=== PATIENT | female | born 1975 | race Caucasian/White ===

== ENCOUNTER → 2018-03-13 11:52 | Outpatient (CLI) | payer BC, SELFPAY | PROVIDERS: Family Provider Family Medicine; PCP Family Medicine; Visit Provider Family Medicine | DX: R20.2 Paresthesia of skin (principal) | CPT/HCPCS: 95886; 95909 ==

== ENCOUNTER → 2018-03-21 10:46 | Outpatient (CLI) | payer BC, SELFPAY ==
--- NOTE | 2018-03-21 | DI.MG.S_ITS ---
BILATERAL DIGITAL SCREENING MAMMOGRAM 3D/2D WITH CAD: 03/21/2018 CLINICAL: Routine screening. Family history of breast cancer. Comparison is made to exams dated: 12/18/2016 mammogram, 11/11/2015 mammogram - [facility], and 11/13/2006 mammogram - [facility]. The tissue of both breasts is heterogeneously dense. This may lower the sensitivity of mammography. Current study was also evaluated with a Computer Aided Detection (CAD) system. No significant masses, calcifications, or other findings are seen in either breast. There has been no significant interval change. IMPRESSION: NEGATIVE There is no mammographic evidence of malignancy. A 1 year screening mammogram is recommended. This exam was interpreted at Station ID: [id number]. NOTE: For mammograms, a report in lay terms will be sent to the patient. Approximately 15% of breast malignancies will not be visualized mammographically. In the management of a palpable breast mass, a negative mammogram must not discourage biopsy of a clinically suspicious lesion. Electronically Signed By: Jordan saleh/andi:03/21/2018 15:05:51 letter sent: Normal Exam ACR BI-RADS Category 1: Negative [id number]
== END ==
PROVIDERS: Family Provider Family Medicine; PCP Family Medicine; Visit Provider Family Medicine
DX: Z12.31 Encounter for screening mammogram for malignant neoplasm of breast (principal); Z80.3 Family history of malignant neoplasm of breast
CPT/HCPCS: 77063; 77067

== ENCOUNTER → 2018-06-26 09:11 | Outpatient (CLI) | payer BC, SELFPAY ==
--- NOTE | 2018-06-26 | DI.MRI.S_ITS ---
PROCEDURE: MR LUMBAR SPINE WO CON INDICATIONS: LUMBAR RADICULOPATHY TECHNIQUE: Noncontrast sagittal T1 spin echo and T2 fast echo, sagittal STIR, axial T1 and T2 fast spin echo through the lumbar spine. In cases with scoliosis, additional coronal T2 fast spin echo may be performed. COMPARISON: [facility], CR, L-SPINE 2-3 VIEWS, 02/04/2012, 15:19. [facility], , L-SPINE 2-3 VIEWS, 06/29/2016, 15:19. [facility], CR, L-SPINE 2-3 VIEWS, 11/14/2017, 12:33. FINDINGS: Image quality: Excellent. Alignment and Curvature: There is grade 1 retrolisthesis of L5 on S1. Bone Marrow: Degenerative endplate signal changes in the inferior endplate of L5 and superior endplate of S1. No acute vertebral body compression fractures. Spinal Cord: Conus medullaris terminates at the L1-L2 level. Visualized cord demonstrates normal signal and size. Paraspinous Soft Tissues: No paravertebral masses. L1-L2: Normal appearance. L2-L3: Normal appearance. L3-L4: Preserved disc height. Moderate disc desiccation. There is posterior disc bulge and posterior central annular fissure. Mild bilateral facet arthropathy. The central canal is mildly narrowed. No foraminal stenosis. L4-L5: Preserved disc height. Moderate disc desiccation. There is posterior disc bulge and posterior central annular fissure. Mild bilateral facet arthropathy. The central canal is patent. No foraminal stenosis. L5-S1: Mild to moderate loss of disc height. Moderate disc desiccation. There is broad posterior disc bulge and disc protrusion. Mild bilateral facet arthropathy. The central canal is patent. Mild to moderate bilateral foraminal stenosis. IMPRESSION: 1. Multilevel degenerative disc disease and facet arthropathy as described. 2. Annular fissures posterior centrally at L3-L4 and L4-L5. 3. Mild central canal stenosis at L3-L4. 4. Itov-zh-ofzbtktr bilateral foraminal stenosis at L5-S1. Dictated by: Nikole Zeng M.D. on 06/26/2018 at 12:40 Approved by: Nikole Zeng M.D. on 06/26/2018 at 13:25
== END ==
PROVIDERS: Family Provider Family Medicine; PCP Family Medicine; Visit Provider Family Medicine
DX: M51.16 Intervertebral disc disorders with radiculopathy, lumbar region (principal); M51.17 Intervertebral disc disorders with radiculopathy, lumbosacral region; M47.26 Other spondylosis with radiculopathy, lumbar region; M47.27 Other spondylosis with radiculopathy, lumbosacral region; M48.061 Spinal stenosis, lumbar region without neurogenic claudication; M48.07 Spinal stenosis, lumbosacral region
CPT/HCPCS: 72148

== ENCOUNTER 2019-01-13 08:00 | Outpatient (CLI) | payer BC, SELFPAY ==
[2019-01-13] VITALS (8 sets, daily range): BP systolic 113–135; BP diastolic 63–79; PULSE 73–78; RESP 16–18; TEMP 36.7; O2SAT 97–100
--- NOTE | 2019-01-13 08:02 | DI.RAD.S_ITS ---
PROCEDURE: PAIN L/S FACET INJ/BLK 1ST SALUD COMPARISON: None. INDICATIONS: SPONDYLOSIS FINDINGS: Fluoroscopic spot filming was performed to verify placement of spinal needles at the L4-L5 and L5-S1 level(s), as labeled on the films. Appropriate location(s) of the needle tip(s) was confirmed by injection of iodinated contrast. Dictated by: Tyrone Maya M.D. on 01/13/2019 at 10:32 Approved by: Tyrone Maya M.D. on 01/13/2019 at 10:34
[2019-01-13] MEDS: fentaNYL 100 MCG/2 ML INJ 50 MCG IV (09:21)
[2019-01-13] MEDS: MIDAZOLAM 5 MG/5 ML VIAL IV (09:21)
[2019-01-13] MEDS: IOPAMIDOL 15 ML VIAL 3 ML INJ (09:28)
[2019-01-13] MEDS: LIDOCAINE 1% 20 ML INJ 10 ML INJ (09:28)
[2019-01-13] MEDS: BETAMETHASONE 30 MG/5 ML MDV 12 MG INJ (09:28)
--- NOTE | 2019-01-13 09:34 | PC.NURSE ---
ASSISTING PT OFF TABLE AND TRANSPORTING TO POST PROC AREA IN STABLE CONDITION
--- NOTE | 2019-01-13 09:38 | P.PCN_ITS ---
Procedures Date/Time Date of procedure: 01/13/19 Time of procedure: 09:36 General Procedure description: PREOP DIAGNOSIS 1. FACET ARTHROPATHY 2. AXIAL LBP 3. MULTILEVEL DDD POST OP DIAGNOSIS 1. FACET ARTHROPATHY 2. AXIAL LBP 3. MULTILEVEL DDD PROCEDURES 1. FLUORSCOPICALLY GUIDED CONTRAST CONTROLLED FACET JOINT INJECTIONS BILATERAL L4/5, L5/S1 PHYSICIAN: Mynor Naylor, DO INDICATIONS Yomi is referred by Dr. Hernandez for treatment of Axial LBP FINDINGS Multilevel Facet Arthropathy with Clinically significant axial LBP DESCRIPTION OF PROCEDURE Fluoroscopically guided, contrast-controlled bilateral L4/5, L5/S1 facet joint injections. Following denial of allergy and review of potential side effects and complications, including, but not necessarily limited to, infection, allergic reaction, local tissue breakdown, stroke, temporary or permanent nerve injury, paralysis, and possible , the patient indicated that the patient understood and agreed to proceed. An informed consent document was signed by the patient, witnessed by a nurse, and placed in the patient's chart. Additionally, other treatment options including medications, modalities, and physical therapy were reviewed with the patient. After review of previous anaesthesic history and IV conscious sedation the patient was deemed safe to proceed with todays procedure with IV conscious sedation as ASA class II designation. Safety time-out was performed to confirm patient ID, procedure to be performed and site of procedure. IV sedation was accomplished with a combination of 5mg of Versed and 50mcg of Fentanyl was administered by the RN after DO order, titrated to patient comfort during the course of the procedure while the patient remained responsive to all verbal commands In the prone position, following sterile prep and drape of the lumbar region, the posterior aspect of the L4/5, L5/S1 facet joints were identified fluoroscopically. The skin was anesthetized via a 25-gauge 1.5-inch needle with 1% lidocaine solution into the corresponding facet joints. At this point, a 22- gauge 3.5-inch spinal needle was atraumatically introduced and advanced under fluoroscopic guidance into the corresponding facet joints. Following negative aspiration, injections of approximately 0.2-cc of Isovue 200 confirmed interarticular placement without vascular uptake. The identical procedure was then performed at the L4/5, L5/S1 facet joints on the left. Radiological data, including multiple fluoroscopic views of the lumbosacral spine, reveal a spinal needle at the L4/5, L5/S1 facet joints bilaterally. Subsequent views show flow of contrast material both superiorly and inferiorly within the joint space without vascular or intrathecal uptake. At this point, a total of 0.5 cc including a mixture of 0.25cc Marcaine and 0.25cc betamethasone was injected without complication into each of the corresponding facet joints. The patient tolerated the procedure well without signs or symptoms of complications prior to transfer to the recovery area continued monitoring without incident. The patient was then transferred to the recovery area where they were observed for an appropriate period of time after the injection. The patient reported a VAS score of 7 prior to the procedure and a post- procedure VAS of 0. Total Fluoroscopy Time: 20.3 seconds Total Conscious Sedation Time: 24min POST OP INSTRUCTIONS The patient was provided a Pain Log to continue to record their response to the target-specific procedure prior to follow-up visit with their referring physician. Additionally, specific post-injection care instructions and a contact number to our office were provided if concerns arise regarding possible complications associated with the procedure are suspected. Mynor Naylor DO Complications: none
--- NOTE | 2019-01-13 10:30 | PC.NURSE ---
Pt arrived via wheelchair from procedure room awake and alert, able to move from w/c to chair without problems. Resumed monitoring from Kelly CALL.
== END 2019-01-13 09:58 ==
LOC: RAD 08:01
PROVIDERS: Family Provider Family Medicine; PCP Family Medicine; Visit Provider Physical Medicine & Rehabilitation
DX: M47.816 Spondylosis without myelopathy or radiculopathy, lumbar region (principal); M47.817 Spondylosis without myelopathy or radiculopathy, lumbosacral region; M54.5 Low back pain; M51.36 Other intervertebral disc degeneration, lumbar region; M51.37 Other intervertebral disc degeneration, lumbosacral region
CPT/HCPCS: 64493; 64494; 99152; J0702; J2250; J3010

== ENCOUNTER 2019-03-17 12:19 | Outpatient (CLI) | payer BC, SELFPAY ==
[2019-03-17] VITALS (9 sets, daily range): BP systolic 111–140; BP diastolic 59–77; PULSE 71–78; RESP 16–18; TEMP 36.7; O2SAT 95–100
--- NOTE | 2019-03-17 12:22 | DI.RAD.S_ITS ---
PROCEDURE: PAIN L/S TRANSFORAMINAL INJECT INDICATIONS: SPONDYLOSIS FINDINGS: Fluoroscopic spot filming was performed to verify placement of spinal needles at the L5-S1 level(s), as labeled on the films. Appropriate location(s) of the needle tip(s) was confirmed by injection of iodinated contrast. IMPRESSION: Fluoroscopy support for pain management. Dictated by: Nikole Zeng M.D. on 03/17/2019 at 14:45 Approved by: Nikole Zeng M.D. on 03/17/2019 at 14:45
[2019-03-17] MEDS: MIDAZOLAM 5 MG/5 ML VIAL IV (13:27)
[2019-03-17] MEDS: fentaNYL 100 MCG/2 ML INJ 50 MCG IV (13:27)
[2019-03-17] MEDS: BETAMETHASONE 30 MG/5 ML MDV 12 MG INJ (13:32)
[2019-03-17] MEDS: IOPAMIDOL 15 ML VIAL 3 ML INJ (13:32)
[2019-03-17] MEDS: BUPIVACAINE 0.5% (PF) VIAL 2 ML INJ (13:32)
[2019-03-17] MEDS: DEXAMETHASONE 10 MG/ML VIAL 20 MG INJ (13:32)
--- NOTE | 2019-03-17 13:40 | PC.NURSE ---
ASSISTING PT OFF TABLE AND TRANSPORTING TO POST PROC AREA IN STABLE CONDITION.
--- NOTE | 2019-03-17 13:43 | PM.PROC.1 ---
Procedures Date/Time Date of procedure: 03/17/19 Time of procedure: 13:44 General Procedure description: PREOP DIAGNOSIS 1. FORMAINAL STENOSIS WITH LE SYMPTOMS, POST OP DIAGNOSIS 1. FORMAINAL STENOSIS WITH LE SYMPTOMS, PROCEDURES 1.FLUOROSCOPICALLY GUIDED CONTRAST CONTROLLED TRANSFORAMINAL EPIDURAL STEROID INJECTION - RIGHT L5/S1 TFESI PHYSICIAN: Mynor Naylor DO INDICATIONS: Yomi is referred by Dr. Bennett for treatment of Foraminal Stenosis with right LE Symptoms FINDINGS Foraminal Nerve Root Compression secondary to disc disease and facet hypertrophy DESCRIPTION OF PROCEDURE Following review of allergy and review of potential side effects and complications, including, but not necessarily limited to, infection, allergic reaction, local tissue breakdown, stroke, temporary or permanent nerve injury, paralysis, and possible , the patient indicated that the patient understood and agreed to proceed. An informed consent document was signed by the patient, witnessed by a nurse, and placed in the patient's chart. Additionally, other treatment options including medications, modalities, and physical therapy were reviewed with the patient. After review of previous anaesthesic history and IV conscious sedation the patient was deemed safe to proceed with todays procedure with IV conscious sedation as ASA class II designation. Safety time-out was performed to confirm patient ID, procedure to be performed and site of procedure. IV sedation was accomplished with a combination of 3mg of Versed and 50mcg of Fentanyl was administered by the RN after DO order, titrated to patient comfort during the course of the procedure while the patient remained responsive to all verbal commands In the prone position following sterile prep and drape of the lumbar region, the right L5/S1 posterior neuroforamen was identified fluoroscopically. The skin was anesthetized via a 25-gauge 1.5-inch needle with 1% lidocaine solution. At this point, a 25-gauge 3.5-inch spinal needle was atraumatically introduced and advanced under fluoroscopic guidance through the posterior right L5/S1 neuroforamen to approximately the anterior aspect of the canal. Depth was confirmed on lateral view. Following negative aspiration, injection of approximately 1.5 cc of Isovue 200 under live fluoroscopy in the AP view confirmed excellent flow along the nerve root, into the epidural space without vascular or intrathecal uptake observed Radiological data, including multiple fluoroscopic views of the lumbosacral spine, reveal a spinal needle at the right L5/S1 posterior neuroforamen. Subsequent views show flow of contrast material flowing superiorly and inferiorly along the nerve root confirming epidural flow. Subsequently, a test dose of 1.5 cc of 1% lidocaine solution was administered and patient was observed for two minutes for signs or symptoms of complications, including abdominal pain, shortness of breath, bilateral upper or lower extremity weakness, nausea and vomiting, prior to steroid injection. At this point, a total of 3cc or 20mg of dexamethasone and 6mg of betamethasone was injected without incident. The procedure tolerated the procedure well without signs or symptoms of complications prior to transfer to the recovery area continued monitoring without incident. The patient was then transferred to the recovery area where they were observed for an appropriate time after the injection. The patient reported a VAS score of 7 prior to the procedure and a post-procedure VAS of 0. Total Fluoroscopy Time: 20.9 seconds Total Conscious Sedation Time: 24min POST OP INSTRUCTIONS The patient was provided a Pain Log to continue to record their response to the target-specific procedure prior to follow-up visit with their referring physician. Additionally, specific post-injection care instructions and a contact number to our office were provided if concerns arise regarding possible complications associated with the procedure are suspected. Mynor Naylor, Complications: none
--- NOTE | 2019-03-17 13:45 | PC.NURSE ---
Pt returned from procedure via wheelchair, awake and alert, able to move from w/c to chair with standby assist. Resumed monitoring from Kelly CALL.
== END 2019-03-17 14:11 ==
LOC: RAD 12:21
PROVIDERS: Family Provider Family Medicine; PCP Family Medicine; Visit Provider Physical Medicine & Rehabilitation
DX: M47.817 Spondylosis without myelopathy or radiculopathy, lumbosacral region (principal); M51.26 Other intervertebral disc displacement, lumbar region
CPT/HCPCS: 64483; 99152; J0702; J1100; J2250; J3010

== ENCOUNTER → 2019-03-31 14:45 | Outpatient (CLI) | payer BC, SELFPAY ==
--- NOTE | 2019-03-31 | DI.MG.S_ITS ---
BILATERAL DIGITAL SCREENING MAMMOGRAM 3D/2D WITH CAD: 03/31/2019 CLINICAL: Routine screening. Family history of breast cancer. Comparison is made to exams dated: 03/21/2018 mammogram, 12/18/2016 mammogram, and 11/11/2015 mammogram - [facility]. The tissue of both breasts is heterogeneously dense. This may lower the sensitivity of mammography. Current study was also evaluated with a Computer Aided Detection (CAD) system. No significant masses, calcifications, or other findings are seen in either breast. There has been no significant interval change. IMPRESSION: NEGATIVE There is no mammographic evidence of malignancy. A 1 year screening mammogram is recommended. This exam was interpreted at Station ID: [id number]. NOTE: For mammograms, a report in lay terms will be sent to the patient. Approximately 15% of breast malignancies will not be visualized mammographically. In the management of a palpable breast mass, a negative mammogram must not discourage biopsy of a clinically suspicious lesion. Electronically Signed By: Truong herzog/andi:04/02/2019 09:20:51 letter sent: Normal Exam ACR BI-RADS Category 1: Negative 3341F
== END ==
PROVIDERS: Family Provider Family Medicine; PCP Family Medicine; Visit Provider Family Medicine
DX: Z12.31 Encounter for screening mammogram for malignant neoplasm of breast (principal); Z80.3 Family history of malignant neoplasm of breast
CPT/HCPCS: 77063; 77067

== ENCOUNTER 2019-06-23 09:32 | Outpatient (CLI) | payer BC, SELFPAY ==
[2019-06-23] VITALS (11 sets, daily range): BP systolic 111–146; BP diastolic 69–82; PULSE 67–79; RESP 16–18; TEMP 36.7; O2SAT 18–100
--- NOTE | 2019-06-23 09:33 | DI.RAD.S_ITS ---
PROCEDURE: PAIN L/S FACET INJ/BLK 1ST SALUD COMPARISON: None. INDICATIONS: SPONDYLOSIS FINDINGS: 6 intraoperative fluoroscopy images demonstrate needle placement at L4, L5 and S1. IMPRESSION: Fluoroscopy for pain management. Dictated by: Nikole Zeng M.D. on 06/23/2019 at 11:31 Approved by: Nikole Zeng M.D. on 06/23/2019 at 11:32
[2019-06-23] MEDS: fentaNYL 100 MCG/2 ML INJ 50 MCG IV (10:39)
[2019-06-23] MEDS: BUPIVACAINE 0.5% (PF) VIAL 2 ML INJ (10:48)
[2019-06-23] MEDS: IOPAMIDOL 15 ML VIAL 3 ML INJ (10:49)
[2019-06-23] MEDS: MIDAZOLAM 5 MG/5 ML VIAL IV (10:51)
[2019-06-23] MEDS: LIDOCAINE 1% 20 ML 10 ML INJ (10:51)
[2019-06-23] MEDS: BETAMETHASONE 30 MG/5 ML MDV 12 MG INJ (10:51)
--- NOTE | 2019-06-23 10:59 | PC.NURSE ---
ASSISTING PT OFF TABLE AND TRANSPORTING TO POST PROC AREA IN STABLE CONDITION. PASSING RN CARE OF PT TO ANDREA Khoury RN.
--- NOTE | 2019-06-23 11:05 | P.PCN_ITS ---
Procedures Date/Time Date of procedure: 06/23/19 Time of procedure: 11:06 General Procedure description: Procedure description: 1. FACET ARTHROPATHY PROCEDURES: 1. BILATERAL- L4, L5 and S1 MB BLOCKS PHYSICIAN: DO LIZ Mix Yomi is referred by for treatment of Bilateral Axial LBP. DESCRIPTION OF PROCEDURE Fluoroscopically guided, contrast-controlled bilateral L4, L5 and S1 medial branch blocks with 0.5cc of 0.5% Marcaine. Following review of allergy and review of potential side effects and complications, including, but not necessarily limited to, infection, allergic reaction, local tissue breakdown, nerve injury, paralysis, stroke and possible , the patient indicated that the patient understood and agreed to proceed. An informed consent document was signed by the patient, witnessed by a nurse, and placed in the patient's chart. After review of previous anaesthesic history and IV conscious sedation the patient was deemed safe to proceed with todays procedure with IV conscious se dation as ASA class II designation. Safety time-out was performed to confirm patient ID, procedure to be performed and site of procedure. IV sedation was accomplished with a combination of 3mg of Versed and 50mcg of Fentanyl was administered by the RN after DO order, titrated to patient comfort during the course of the procedure while the patient remained responsive to all verbal commands In the prone position, following sterile prep and drape of the lumbar region, the right L4, L5 and S1 anatomical location of the medial branch of the dorsal ramus was identified fluoroscopically. Subsequently an anesthetic skin wheal using 1% lidocaine solution was initiated at each of the anatomical spots. Subsequently then a 22-gauge 3.5-inch spinal needle was atraumatically introduced and advanced under fluoroscopic guidance at each of the corresponding sites at the right L4, L5 and S1 MB. After negative aspiration, 0.2cc of Isovue 200 was injected, confirming placement without vascular or intrathecal uptake. Subsequently then 0.5cc of 0.5% Marcaine solution was injected at each of the corresponding sites at the right L4, L5 and S1 medial branch locations. The identical procedure was replicated on the left. The patient tolerated the procedure well without signs or symptoms of complications prior to transfer to the recovery area continued monitoring without incident. Post-procedure, the patient was monitored initiating provocative activities to measure the amount of relief from block of the facetogenic pain. The patient reported a VAS of 7 prior to the procedure and a post-procedure VAS of 1. It has been a pleasure to assist in the diagnostic and therapeutic care of your patient. Total Fluoroscopy Time: 24.8 seconds Total Conscious Sedation Time: 24min POST OP INSTRUCTIONS The patient was provided with a Pain Log to complete over the next several hours and subsequent days prior to the patient's follow up with the ordering physician. If the patient has laborer wrecking and salvaging relief to the solution applied, then they may be a candidate for medial branch rhizotomy. The patient is aware, was provided, once again, with a Pain Log and will follow up with the referring physician for review and clinical correlation Mynor Naylor DO
--- NOTE | 2019-06-23 11:49 | PC.NURSE ---
Discharge note: VSS, O2 sat WNL, Awake and slightly drowsy from sedation. Tolerating po without nausea. Pain level 0/10. Denies any unusual numbness or tingling. Discharge instructions reviewed with patient and spouse with good understanding. Stable for discharge to home. W/c to car at 1130.
== END 2019-06-23 11:30 ==
LOC: RAD 09:33
PROVIDERS: PCP Family Medicine; Visit Provider Physical Medicine & Rehabilitation
DX: M47.817 Spondylosis without myelopathy or radiculopathy, lumbosacral region (principal); M47.816 Spondylosis without myelopathy or radiculopathy, lumbar region; M54.5 Low back pain
CPT/HCPCS: 64493; 64494; 99152; J0702; J2250; J3010

== ENCOUNTER 2019-09-01 11:08 | Outpatient (CLI) | payer BC, SELFPAY ==
[2019-09-01] VITALS (13 sets, daily range): BP systolic 117–143; BP diastolic 56–90; PULSE 79–95; RESP 16–20; TEMP 36.1; O2SAT 94–99
--- NOTE | 2019-09-01 11:09 | DI.RAD.S_ITS ---
PROCEDURE: PAIN L/S MED/LAT N RFA BILAT INDICATIONS: INTERVERTEBRAL DISC DISPLACEMENT FINDINGS: Fluoroscopic spot filming was performed to verify placement of spinal needles at the L4, L5 and S1 level(s), as labeled on the films. Appropriate location(s) of the needle tip(s) was confirmed by injection of iodinated contrast. IMPRESSION: Fluoroscopy for pain management Dictated by: Nikole Zeng M.D. on 09/01/2019 at 12:49 Approved by: Nikole Zeng M.D. on 09/01/2019 at 12:52
[2019-09-01] MEDS: fentaNYL 100 MCG/2 ML INJ 50 MCG IV (11:54)
[2019-09-01] MEDS: MIDAZOLAM 5 MG/5 ML VIAL IV (12:07)
[2019-09-01] MEDS: LIDOCAINE 1% 20 ML 10 ML INJ (12:13)
[2019-09-01] MEDS: BUPIVACAINE 0.5% (PF) VIAL 5 ML INJ (12:13)
--- NOTE | 2019-09-01 12:32 | PC.NURSE ---
ASSISTING PT OFF TABLE AND TRANSPORTING TO POST PROC AREA IN STABLE CONDITION. PASSING RN CARE OF PT TO BRENT Rabago RN.
--- NOTE | 2019-09-01 12:39 | P.PCN_ITS ---
Procedures Date/Time Date of procedure: 09/01/19 Time of procedure: 12:39 General Procedure description: PREOP DIAGNOSIS 1. RECALCITRANT FACET ARTHROPATHY, POST OP DIAGNOSIS 1. RECALCITRANT FACET ARTHROPATHY PROCEDURES 1. BILATERAL L4 AND L5 MEDIAL BRANCH RADIOFREQUENCY NEUROTOMY AND S1 DORSAL RAMUS BRANCH RADIOFREQUENCY NEUROTOMY PHYSICIAN: Mynor Naylor DO INDICATIONS: Yomi is referred by Dr. Hernandez for treatment of facet arthropathy. DESCRIPTION OF PROCEDURE Bilateral L4 and L5 medial branch radiofrequency neurotomy and right S1 dorsal ramus radiofrequency neurotomy under fluoroscopy with conscious sedation. The patient is well known to this clinic having undergone previous facet injections with good but temporary relief. The patient has experienced appropriate, concordant relief with previous facet and median branch blocks but the patient's pain has been recalcitrant to further conservative measures. Therefore, based upon the patient's relief and persistent symptoms, the patient is considered an appropriate candidate for facet rhizotomy. All of the patient's questions regarding the risks versus benefits of the procedure, including, but not limited to, bleeding, infection, temporary as well as lasting nerve injury, paralysis, stroke, and , as well treatment alternatives were answered to satisfaction. After obtaining informed consent, denial of pertinent drug allergies, as well as being made aware of the potential risks of bleeding, infection, spinal cord trauma, paralysis, temporary and permanent nerve damage, seizure, stroke, and possible , the patient was brought to the fluoroscopy suite and positioned prone on the fluoroscopy table. The lumbar region was prepped with Betadine and covered with a fenestrated drape in the usual sterile fashion. Appropriate monitors applied including pulse oximeter, pulse, and blood pressure for regular monitoring throughout the procedure. After review of previous anaesthesic history and IV conscious sedation the patient was deemed safe to proceed with todays procedure with IV conscious sedation as ASA class II designation. Safety time-out was performed to confirm patient ID, procedure to be performed and site of procedure. IV sedation was accomplished with a combination of 5mg of Versed and 50mcg of Fentanyl administered by the RN after DO order, titrated to patient comfort during the course of the procedure while the patient remained responsive to all verbal commands. After local infiltration using 1% lidocaine, under fluoroscopic guidance, a 15- cm RF insulated needle with a 10-mm active tip was positioned parallel to the junction of the right sacral ala and the superior articulating process where the S1 dorsal ramus resides. Needle placement was confirmed with motor stimulation of .5v on the right which produced local stimulation without radicular component. The stimulation was then increased to 1.5v with, once again, only local multifidus stimulation without radicular component. The needle was then removed and the identical procedure was performed along the length of the right L5 medial branch with motor stimulation at .7v on the right. The identical procedure was once again performed along the length of the right L4 medial branch with motor stimulation of .5v on the right. The medial branches were then anesthetised with 0.5% Marcaine. This was then followed by two discreet lesions performed at 80 degrees Celsius for 90 seconds each. The identical procedure was repeated on the left. The patient tolerated the procedure well without signs or symptoms of complications prior to transfer to the recovery area continued monitoring without incident. The patient was then transferred to the recovery area where they were observed for an appropriate period of time after the injection. The patient reported a VAS score of 9 prior to the procedure and a post-procedure VAS of 0. Total Fluoroscopy Time: 22.7 seconds Total Conscious Sedation Time: 34min POST OP INSTRUCTIONS The patient was provided a Pain Log to continue to record the patient's response to the target-specific procedure prior to the patient's follow-up visit with the referring physician. Additionally, specific post-injection care instructions and a contact number to our office were provided if concerns arise regarding possible complications associated with the procedure are suspected. Mynor Naylor DO Complications: none
== END 2019-09-01 13:11 | disposition home or self-care (01) ==
PROVIDERS: Family Provider Family Medicine; PCP Family Medicine; Visit Provider Physical Medicine & Rehabilitation
DX: M47.816 Spondylosis without myelopathy or radiculopathy, lumbar region (principal); M47.817 Spondylosis without myelopathy or radiculopathy, lumbosacral region
CPT/HCPCS: 64635; 64636; 99152; 99153; J2250; J3010

== ENCOUNTER 2019-11-01 12:30 | Emergency (ER) | payer BC, SELFPAY ==
[2019-11-01 12:46] VITALS: BP 173/91; PULSE 79; RESP 18; TEMP 36.9; O2SAT 98
--- NOTE | 2019-11-01 12:57 | DI.RAD.S_ITS ---
PROCEDURE: XR SOFT TISSUE NECK INDICATIONS: pain, dysphagia TECHNIQUE: 2 views of the neck were acquired. COMPARISON: None. FINDINGS: Airway: The airway appears patent. Soft tissues: Prevertebral soft tissues are normal in thickness. The epiglottis and aryepiglottic folds appear normal. No soft tissue gas. Multilevel endplate osteophytes within the cervical spine. Bones: No suspicious bony lesions. Visualized cervical spine is normally aligned. IMPRESSION: No acute process. Dictated by: Brendan Cheema M.D. on 11/01/2019 at 13:29 Approved by: Brendan Cheema M.D. on 11/01/2019 at 13:29
--- NOTE | 2019-11-01 12:57 | DI.RAD.S_ITS ---
PROCEDURE: XR CHEST 2V INDICATIONS: cough, shortness of breath TECHNIQUE: 2 views of the chest were acquired. COMPARISON: [facility], , CHEST 2 VIEW, 09/25/2017, 10:06. FINDINGS: Surgical changes and devices: Median sternotomy. Lungs and pleura: Lung volumes are low. There is bilateral mid and lower lung reticulonodular density. No pleural effusions or pneumothorax. Mediastinum: Mediastinal contours are normal. Heart size is normal. Bones and chest wall: No suspicious bony abnormalities. Soft tissues appear unremarkable. IMPRESSION: Mild atypical pneumonia. Dictated by: Brendan Cheema M.D. on 11/01/2019 at 13:29 Approved by: Brendan Cheema M.D. on 11/01/2019 at 13:30
--- NOTE | 2019-11-01 13:15 | PC.NURSE ---
Patient felt normal this morning, sudden onset of throat pain, pain with deep breath I can't breath voice presents raspy and abnormal per family. Patient has a persistent dry cough, continues to try and clear her throat. Throat slightly red, no swelling appreciated.
--- NOTE | 2019-11-01 13:16 | ED.SOB ---
HPI - SOB/Dyspnea <Farzaneh Herron, SU[employer]AR MIXER-BC - Last Filed: 11/01/19 17:15> General Chief Complaint: Shortness of Breath/Dyspnea Stated Complaint: SOB, Difficulty Breathing Time Seen by Provider: 11/01/19 12:48 Source: patient Mode of arrival: Ambulatory Limitations: no limitations History of Present Illness HPI Narrative: The patient is a 44-year-old female former smoker with history of tetralogy of Fallot who presents with a chief complaint of sudden onset of throat pain. She was at [employer] with her family, left urge to go get a snack and returns stating that her throat hurt really bad and she could not breathe. She states that she went to eat Cheerios, which she has had before with no incidence. She denies any fevers nausea vomiting or diarrhea. She states she feels as though she has to keep clearing her throat. She has not tried to eat or drink anything since. She denies any fevers nausea vomiting or diarrhea. She states that she does not know why her throat started hurting all of a sudden. She denies any specific exposures to strep etcetera. Related Data Home Medications Medication Instructions Recorded Confirmed Vitamin K PO 12/19/18 10/01/19 aspirin 81 mg chewable tablet 81 mg PO DAILY 12/19/18 10/01/19 cholecalciferol (vitamin D3) 125 5,000 unit PO DAILY 12/19/18 10/01/19 mcg (5,000 unit) capsule lamotrigine 150 mg tablet 150 mg PO DAILY 12/19/18 10/01/19 pseudoephedrine HCl 30 mg tablet PO PRN #0 12/19/18 10/01/19 venlafaxine PO .qday 12/19/18 10/01/19 warfarin 3 mg tablet 3 mg PO DAILY 12/19/18 10/01/19 Previous Rx's Medication Instructions Recorded cyclobenzaprine 10 mg tablet 10 mg PO TID PRN #60 tab 04/06/19 diclofenac sodium 1 % topical gel 2 gram TOP QID #100 gram 04/30/19 lidocaine 5 % topical patch 1 patch TOP DAILY #30 each MDD 12 04/30/19 hours in a 24 hour period lidocaine 5 % topical ointment 1 applic TOP BID-TID PRN #35.44 07/07/19 gram MDD three applications tramadol 50 mg PO Q8H PRN #40 tab 09/01/19 tramadol 50 mg PO Q8H PRN #40 tab 09/01/19 doxycycline hyclate 100 mg PO BID #20 cap 11/01/19 Allergies Allergy/AdvReac Type Severity Reaction Status Date / Time prednisone AdvReac Mild INCREASED Verified 10/01/19 11:35 HEART RATE Review of Systems <DONOVAN Flores - Last Filed: 11/01/19 17:15> Review of Systems Narrative: GENERAL: Denies chills, fatigue, malaise, fever, sweats. HEENT: See HPI RESPIRATORY: See HPI CARDIOVASCULAR: Denies chest pain, palpitations, orthopnea, edema, GASTROINTESTINAL: Denies nausea, vomiting, abdominal pain, diarrhea, constipation, melena. : Denies dysuria, frequency, incontinence, hematuria, urinary retention. MUSCULOSKELETAL: denies weakness, joint pain, or bony pain SKIN: Denies rash, skin lesions, or other NEUROLOGIC: Denies weakness, headache, numbness, change in speech, confusion, seizures, incoordination. PSYCHIATRIC: No concerning psychosocial issues. 12 point review of systems is negative except for those stated above Patient History <DONOVAN Flores - Last Filed: 11/01/19 17:15> Surgical History History of heart surgery (Acute) History of medial meniscus repair of right knee (Acute) History of sinus surgery (Acute) Family History Father Heart attack Mother Diabetes mellitus Social History Smoking Status: Former smoker Smoking Status: Former smoker Substance Use Type: does not use Exam <DONOVAN Flores - Last Filed: 11/01/19 17:15> Narrative Exam Narrative: GENERAL: This is a well-nourished, well-developed patient, coughing HEAD: Atraumatic. Normocephalic. No temporal or scalp tenderness. EYES: Pupils equal round and reactive. Extraocular motions intact. No scleral icterus. No injection or drainage. ENT: Nose without bleeding, purulent drainage or septal hematoma. Throat without erythema, tonsillar hypertrophy or exudate. Uvula midline. Airway patent. No oropharyngeal swelling. NECK: Trachea midline. No JVD or lymphadenopathy. Supple, nontender, no meningeal signs. CARDIOVASCULAR: Regular rate and rhythm RESPIRATORY: Clear to auscultation. Breath sounds equal bilaterally. No wheezes, rales, or rhonchi. Dry spastic sounding cough. No increased respiratory effort. No accessory muscle use. No stridor. No retractions. GASTROINTESTINAL: Abdomen soft, non-tender, nondistended. No hepato-splenomegaly, or palpable masses. No guarding. EXTREMITIES: No clubbing, cyanosis, or edema. No joint tenderness, effusion, or edema noted. BACK: Nontender without deformity or crepitance. No flank tenderness. NEURO: AOx3. SKIN: No rash or erythema on visible skin. Midline chest incision noted. Initial Vital Signs Initial Vital Signs: Vital Signs Temperature 98.4 F 11/01/19 12:46 Pulse Rate 79 11/01/19 12:46 Respiratory Rate 18 11/01/19 12:46 Blood Pressure 173/91 H 11/01/19 12:46 Pulse Oximetry 98 11/01/19 12:46 <Lillie Reilly MD - Last Filed: 11/02/19 07:14> Initial Vital Signs Initial Vital Signs: Vital Signs Temperature 98.4 F 11/01/19 12:46 Pulse Rate 79 11/01/19 12:46 Respiratory Rate 18 11/01/19 12:46 Blood Pressure 173/91 H 11/01/19 12:46 Pulse Oximetry 98 11/01/19 12:46 Scores <RUSSEL Flores-BC - Last Filed: 11/01/19 17:15> CURB-65 Confusion: No BUN >19mg/dL (>7mmol/L): No Respiratory rate greater or equal to 30: No SBP <90mmHg or DBP less or equal to 60mmHg: No Age 65 or Older: No CURB-65 Total: 0 Score 0-1 Outpatient care, Score 2 Inpt vs. Obs, Score 3 or over Inpt admit with ICU for score of 4-5 GCS Donal coma scale eye opening: Spontaneous Donal coma scale verbal response: Orientated Donal coma scale motor response: Obey commands Donal coma scale total score: 15 Course <RUSSEL Flores-BC - Last Filed: 11/01/19 17:15> Orders Ordered: Discontinued Medications Diphenhydramine HCl (Benadryl) 50 mg PO NOW ONE Stop: 11/01/19 12:58 Last Admin: 11/01/19 13:25 Dose: 50 mg Documented by: RENITA Vital Signs Vital signs: Vital Signs - 8 hr 11/01/19 12:46 11/01/19 16:11 Temperature 98.4 F 98.8 F Pulse Rate 79 80 Respiratory Rate 18 12 Blood Pressure 173/91 H Blood Pressure [left arm] 140/78 Pulse Oximetry 98 99 <Lillie Reilly MD - Last Filed: 11/02/19 07:14> Orders Ordered: Discontinued Medications Diphenhydramine HCl (Benadryl) 50 mg PO NOW ONE Stop: 11/01/19 12:58 Last Admin: 11/01/19 13:25 Dose: 50 mg Documented by: RENITA Vital Signs Vital signs: Vital Signs - 8 hr 11/01/19 12:46 11/01/19 16:11 Temperature 98.4 F 98.8 F Pulse Rate 79 80 Respiratory Rate 18 12 Blood Pressure 173/91 H Blood Pressure [left arm] 140/78 Pulse Oximetry 98 99 MDM - SOB/Dyspnea <DONOVAN Flores - Last Filed: 11/01/19 17:15> Lab Data Attestation: I reviewed the patient's lab results. Result diagrams: 11/01/19 14:47 11/01/19 14:47 Labs: Lab Results 11/01/19 11/01/19 11/01/19 Range/Units 13:36 13:36 14:47 WBC 7.2 (4.5-11.0) X10^3/uL RBC 3.84 L (4.0-5.2) X10^6/uL Hgb 11.6 L (12.0-16.0) g/dL Hct 34.2 L (36-46) % MCV 89.1 (80-100) fL MCH 30.3 (26-34) PG MCHC 34.1 (30-36) % RDW 13.7 (11.6-14.8) % Plt Count 316 (150-400) X10^3/uL Neut % (Auto) 51.3 (50-75) % Lymph % (Auto) 37.3 (25-40) % [place] % (Auto) 6.7 (3-14) % Eos % (Auto) 3.7 (2-4) % Baso % (Auto) 1.0 (0-2) % Neut # (Auto) 3700 (4610-8038) /uL Lymph # (Auto) 2700 (1952-5063) /uL [place] # (Auto) 500 (0-900) /uL Eos # (Auto) 300 (0-450) /uL Baso # (Auto) 100 (0-100) /uL Sodium (137-145) mmol/L Potassium (3.4-5.1) mmol/L Chloride (98-107) mmol/L Carbon Dioxide (22-32) mmol/L BUN (7-17) mg/dL Creatinine (0.52-1.04) mg/dL Estimated GFR (>60) mL/min BUN/Creatinine Ratio (6-22) Glucose (70-100) mg/dL Calcium (8.4-10.2) mg/dL Total Bilirubin (0.2-1.3) mg/dL AST (14-36) IU/L ALT (<35) IU/L Alkaline Phosphatase (38-126) U/L Total Protein (6.3-8.2) g/dL Albumin (3.5-5.0) g/dL Globulin (1.7-4.1) g/dL Albumin/Globulin Ratio (1.0-2.8) Procalcitonin (<0.5) ng/mL Urine RBC 0-1/hpf (0-5/HPF) Urine WBC 1-5/hpf (0-5/HPF) Ur Squamous Epith Cells 1-5 /hpf (0-5/HPF) Urine Bacteria Moderate (10-30) H (None) Ur Culture Indicated? Culture not indicate U Opiates 300ng/mL cut Negative (Negative) Ur Oxycodone Screen Negative (Negative) Urine Methadone Screen Negative (Negative) Ur Barbiturates Screen Negative (Negative) U Tricyclic Antidepress Negative (Negative) Ur Phencyclidine Scrn Negative (Negative) Ur Amphetamines Screen Negative (Negative) U Methamphetamines Scrn Negative (Negative) Ur MDMA Scrn (Ecstasy) Negative (Negative) U Benzodiazepines Scrn Negative (Negative) Urine Cocaine Screen Negative (Negative) U Marijuana (THC) Screen Negative (Negative) 11/01/19 11/01/19 Range/Units 14:47 14:47 WBC (4.5-11.0) X10^3/uL RBC (4.0-5.2) X10^6/uL Hgb (12.0-16.0) g/dL Hct (36-46) % MCV (80-100) fL MCH (26-34) PG MCHC (30-36) % RDW (11.6-14.8) % Plt Count (150-400) X10^3/uL Neut % (Auto) (50-75) % Lymph % (Auto) (25-40) % [place] % (Auto) (3-14) % Eos % (Auto) (2-4) % Baso % (Auto) (0-2) % Neut # (Auto) (3796-6155) /uL Lymph # (Auto) (0096-1675) /uL [place] # (Auto) (0-900) /uL Eos # (Auto) (0-450) /uL Baso # (Auto) (0-100) /uL Sodium 138 (137-145) mmol/L Potassium 4.1 (3.4-5.1) mmol/L Chloride 102 (98-107) mmol/L Carbon Dioxide 29 (22-32) mmol/L BUN 10 (7-17) mg/dL Creatinine 0.50 L (0.52-1.04) mg/dL Estimated GFR > 60.0 (>60) mL/min BUN/Creatinine Ratio 20.0 (6-22) Glucose 108 H (70-100) mg/dL Calcium 9.9 (8.4-10.2) mg/dL Total Bilirubin 0.3 (0.2-1.3) mg/dL AST 29 (14-36) IU/L ALT 17 (<35) IU/L Alkaline Phosphatase 109 (38-126) U/L Total Protein 8.2 (6.3-8.2) g/dL Albumin 4.4 (3.5-5.0) g/dL Globulin 3.8 (1.7-4.1) g/dL Albumin/Globulin Ratio 1.2 (1.0-2.8) Procalcitonin < 0.05 (<0.5) ng/mL Urine RBC (0-5/HPF) Urine WBC (0-5/HPF) Ur Squamous Epith Cells (0-5/HPF) Urine Bacteria (None) Ur Culture Indicated? U Opiates 300ng/mL cut (Negative) Ur Oxycodone Screen (Negative) Urine Methadone Screen (Negative) Ur Barbiturates Screen (Negative) U Tricyclic Antidepress (Negative) Ur Phencyclidine Scrn (Negative) Ur Amphetamines Screen (Negative) U Methamphetamines Scrn (Negative) Ur MDMA Scrn (Ecstasy) (Negative) U Benzodiazepines Scrn (Negative) Urine Cocaine Screen (Negative) U Marijuana (THC) Screen (Negative) Point of Care Testing Test Results Negative Rapid Strep A Negative Urine Dip Bedside Urine Glucose Negative Bedside Urine Bilirubin - Negative Bedside Urine Ketone - Negative Urine Specific Anderson 1.010 Bedside Urine Occult Blood - Negative Bedside Urine pH 6.0 Bedside Urine Protein - Negative Bedside Urine Urobilinogen - Negative Bedside Urine Nitrite - Negative Bedside Urine Leukocytes + 70 Esterase Imaging Data Soft tissue x-ray: Radiologist's Impression: [address] [place] [id number] XRay Report Signed Patient: Yomi Castro R#: [id number] : 1975Acct:[id number] Age/Sex: 44 / FDate of Service: 11/01/19 Loc: ED Accession Number: [id number] Procedure: XR soft tissue neck Ordering Provider: Farzaneh Herron [facility]- PROCEDURE: XR SOFT TISSUE NECK INDICATIONS: pain, dysphagia TECHNIQUE: 2 views of the neck were acquired. COMPARISON: None. FINDINGS: Airway: The airway appears patent. Soft tissues: Prevertebral soft tissues are normal in thickness. The epiglottis and aryepiglottic folds appear normal. No soft tissue gas. Multilevel endplate osteophytes within the cervical spine. Bones: No suspicious bony lesions. Visualized cervical spine is normally aligned. IMPRESSION: No acute process. Dictated by: Brendan Cheema M.D. on 11/01/2019 at 13:29 Approved by: Brendan Cheema M.D. on 11/01/2019 at 13:29 Chest x-ray: Radiologist's Impression: [address] [place] [id number] XRay Report Signed Patient: Yomi Castro JMR#: [id number] : 1975Acct:[id number] Age/Sex: 44 / FDate of Service: 11/01/19 Loc: ED Accession Number: [id number] Procedure: XR chest 2V Ordering Provider: Farzaneh Herron PROCEDURE: XR CHEST 2V INDICATIONS: cough, shortness of breath TECHNIQUE: 2 views of the chest were acquired. COMPARISON: [facility], , CHEST 2 VIEW, 09/25/2017, 10:06. FINDINGS: Surgical changes and devices: Median sternotomy. Lungs and pleura: Lung volumes are low. There is bilateral mid and lower lung reticulonodular density. No pleural effusions or pneumothorax. Mediastinum: Mediastinal contours are normal. Heart size is normal. Bones and chest wall: No suspicious bony abnormalities. Soft tissues appear unremarkable. IMPRESSION: Mild atypical pneumonia. Dictated by: Brendan Cheema M.D. on 11/01/2019 at 13:29 Approved by: Brendan Cheema M.D. on 11/01/2019 at 13:30 [facility] Narrative Medical decision making narrative: The patient is a 44-year-old female with history of tetralogy of Fallot who presents with a chief complaint of sudden onset of throat pain and hoarse voice. Her airway is intact and she is oxygenating well. She has an overall benign exam, clear lung sounds, was evaluated by respiratory therapist. She has no signs of anaphylaxis or allergic reaction. Rapid strep is negative. Throat cultures pending at this time. Soft tissue neck is x-ray shows no acute findings, however chest x-ray shows mild atypical pneumonia. I would doubt that her sudden onset of sore throat and hoarse voice is related to atypical pneumonia, however we elected to treat this. She has taken doxycycline before, we discussed using sunscreen with that. Overall lab work is normal. Curb 65 is 0. I discussed at length the importance of following up with primary care provider, pending cultures and that we will contact her if we need to change any of her treatment. Patient and feel very ready to be discharged home, state understanding of return precautions of any acute concerns as well as follow-up care. No questions or concerns upon discharge <Lillie Reilly MD - Last Filed: 11/02/19 07:14> Lab Data Labs: Lab Results 11/01/19 11/01/19 11/01/19 Range/Units 13:36 13:36 14:47 WBC 7.2 (4.5-11.0) X10^3/uL RBC 3.84 L (4.0-5.2) X10^6/uL Hgb 11.6 L (12.0-16.0) g/dL Hct 34.2 L (36-46) % MCV 89.1 (80-100) fL MCH 30.3 (26-34) PG MCHC 34.1 (30-36) % RDW 13.7 (11.6-14.8) % Plt Count 316 (150-400) X10^3/uL Neut % (Auto) 51.3 (50-75) % Lymph % (Auto) 37.3 (25-40) % [place] % (Auto) 6.7 (3-14) % Eos % (Auto) 3.7 (2-4) % Baso % (Auto) 1.0 (0-2) % Neut # (Auto) 3700 (1159-3948) /uL Lymph # (Auto) 2700 (4437-8400) /uL [place] # (Auto) 500 (0-900) /uL Eos # (Auto) 300 (0-450) /uL Baso # (Auto) 100 (0-100) /uL Sodium (137-145) mmol/L Potassium (3.4-5.1) mmol/L Chloride (98-107) mmol/L Carbon Dioxide (22-32) mmol/L BUN (7-17) mg/dL Creatinine (0.52-1.04) mg/dL Estimated GFR (>60) mL/min BUN/Creatinine Ratio (6-22) Glucose (70-100) mg/dL Calcium (8.4-10.2) mg/dL Total Bilirubin (0.2-1.3) mg/dL AST (14-36) IU/L ALT (<35) IU/L Alkaline Phosphatase (38-126) U/L Total Protein (6.3-8.2) g/dL Albumin (3.5-5.0) g/dL Globulin (1.7-4.1) g/dL Albumin/Globulin Ratio (1.0-2.8) Procalcitonin (<0.5) ng/mL Urine RBC 0-1/hpf (0-5/HPF) Urine WBC 1-5/hpf (0-5/HPF) Ur Squamous Epith Cells 1-5 /hpf (0-5/HPF) Urine Bacteria Moderate (10-30) H (None) Ur Culture Indicated? Culture not indicate U Opiates 300ng/mL cut Negative (Negative) Ur Oxycodone Screen Negative (Negative) Urine Methadone Screen Negative (Negative) Ur Barbiturates Screen Negative (Negative) U Tricyclic Antidepress Negative (Negative) Ur Phencyclidine Scrn Negative (Negative) Ur Amphetamines Screen Negative (Negative) U Methamphetamines Scrn Negative (Negative) Ur MDMA Scrn (Ecstasy) Negative (Negative) U Benzodiazepines Scrn Negative (Negative) Urine Cocaine Screen Negative (Negative) U Marijuana (THC) Screen Negative (Negative) 11/01/19 11/01/19 Range/Units 14:47 14:47 WBC (4.5-11.0) X10^3/uL RBC (4.0-5.2) X10^6/uL Hgb (12.0-16.0) g/dL Hct (36-46) % MCV (80-100) fL MCH (26-34) PG MCHC (30-36) % RDW (11.6-14.8) % Plt Count (150-400) X10^3/uL Neut % (Auto) (50-75) % Lymph % (Auto) (25-40) % [place] % (Auto) (3-14) % Eos % (Auto) (2-4) % Baso % (Auto) (0-2) % Neut # (Auto) (5880-1176) /uL Lymph # (Auto) (7951-8181) /uL [place] # (Auto) (0-900) /uL Eos # (Auto) (0-450) /uL Baso # (Auto) (0-100) /uL Sodium 138 (137-145) mmol/L Potassium 4.1 (3.4-5.1) mmol/L Chloride 102 (98-107) mmol/L Carbon Dioxide 29 (22-32) mmol/L BUN 10 (7-17) mg/dL Creatinine 0.50 L (0.52-1.04) mg/dL Estimated GFR > 60.0 (>60) mL/min BUN/Creatinine Ratio 20.0 (6-22) Glucose 108 H (70-100) mg/dL Calcium 9.9 (8.4-10.2) mg/dL Total Bilirubin 0.3 (0.2-1.3) mg/dL AST 29 (14-36) IU/L ALT 17 (<35) IU/L Alkaline Phosphatase 109 (38-126) U/L Total Protein 8.2 (6.3-8.2) g/dL Albumin 4.4 (3.5-5.0) g/dL Globulin 3.8 (1.7-4.1) g/dL Albumin/Globulin Ratio 1.2 (1.0-2.8) Procalcitonin < 0.05 (<0.5) ng/mL Urine RBC (0-5/HPF) Urine WBC (0-5/HPF) Ur Squamous Epith Cells (0-5/HPF) Urine Bacteria (None) Ur Culture Indicated? U Opiates 300ng/mL cut (Negative) Ur Oxycodone Screen (Negative) Urine Methadone Screen (Negative) Ur Barbiturates Screen (Negative) U Tricyclic Antidepress (Negative) Ur Phencyclidine Scrn (Negative) Ur Amphetamines Screen (Negative) U Methamphetamines Scrn (Negative) Ur MDMA Scrn (Ecstasy) (Negative) U Benzodiazepines Scrn (Negative) Urine Cocaine Screen (Negative) U Marijuana (THC) Screen (Negative) Point of Care Testing Test Results Negative Rapid Strep A Negative Urine Dip Bedside Urine Glucose Negative Bedside Urine Bilirubin - Negative Bedside Urine Ketone - Negative Urine Specific [place] 1.010 Bedside Urine Occult Blood - Negative Bedside Urine pH 6.0 Bedside Urine Protein - Negative Bedside Urine Urobilinogen - Negative Bedside Urine Nitrite - Negative Bedside Urine Leukocytes + 70 Esterase Discharge Plan Departure Patient Disposition: Home Clinical Impression: Atypical pneumonia Pharyngitis Qualifiers: Pharyngitis/tonsillitis etiology: unspecified etiology Qualified Code(s): J02.9 - Acute pharyngitis, unspecified Discharge Date/Time: 11/01/19 16:22 Instructions: Sore Throat, DI for Atypical Pneumonia Activity Restrictions/Additional Instructions: Thank you for trusting us with your care today. I am sorry I do not know the specific etiology of your sudden sore throat today. Your rapid strep came back negative. There is a throat culture pending. We will call you if anything comes up positive on this. The x-ray of your neck shows no acute findings. However the chest x-ray shows mild atypical pneumonia. I have sent a prescription of an antibiotic to [facility] in [place]. Please be sure to take this with probiotic or yogurt. Wear sunscreen with this antibiotic. Please follow-up with primary care provider in the next few days. As discussed, we also have a urine culture pending at this time. Please come back to the emergency department for any acute concerns. Prescriptions: New doxycycline hyclate 100 mg capsule 100 mg PO BID Qty: 20 RF: 0 No Action pseudoephedrine HCl 30 mg tablet PO PRN (Reason: nasal congestion) Qty: 0 RF: 0 cyclobenzaprine 10 mg tablet 10 mg PO TID PRN (Reason: muscle spasm) Qty: 60 RF: 1 diclofenac sodium 1 % gel 2 gram TOP QID Qty: 100 RF: 0 tramadol 50 mg tablet 50 mg PO Q8H PRN (Reason: pain) Qty: 40 RF: 1 tramadol 50 mg tablet 50 mg PO Q8H PRN (Reason: pain) Qty: 40 RF: 1 lidocaine 5 % ointment 1 applic TOP BID-TID MDD three applications PRN (Reason: lumbar pain) Qty: 35.44 RF: 0 warfarin 3 mg tablet 3 mg PO DAILY RF: 0 lamotrigine 150 mg tablet 150 mg PO DAILY RF: 0 venlafaxine PO .qday RF: 0 aspirin 81 mg tablet,chewable 81 mg PO DAILY RF: 0 Vitamin K PO RF: 0 cholecalciferol (vitamin D3) 5,000 unit capsule 5,000 unit PO DAILY RF: 0 lidocaine 5 % adhesive patch,medicated 1 patch TOP DAILY MDD 12 hours in a 24 hour period Qty: 30 RF: 5 Referrals: Brunilda Hernandez MD [Primary Care Provider] -
[2019-11-01] MEDS: diphenhydrAMINE 25 MG TABLET 50 MG PO (13:25)
[2019-11-01 13:46] LABS: UR Morphine/Opiate cutoff 300 Negative (Negative); Ur Creatinine Normal (Normal); Ur Specific Gravity Normal (Normal); Urine Amphetamines Negative (Negative); Urine Barbiturates Negative (Negative); Urine Benzodiazepines Negative (Negative); Urine Cocaine Negative (Negative); Urine MDMA Negative (Negative); Urine Methadone Negative (Negative); Urine Methamphetamines Negative (Negative); Urine Oxycodone Negative (Negative); Urine Phencyclidine Negative (Negative); Urine Tetrahydrocannabinol Negative (Negative); Urine Tricyclic Antidepressant Negative (Negative); Urine pH Normal (Normal)
[2019-11-01 15:28] LABS: Add Manual Diff / Slide Review NO; Basophils Absolute Auto 100 /uL (0-100); Eosinophils Absolute Auto 300 /uL (0-450); Eosinophils Percent Auto 3.7 % (2-4); Hematocrit 34.2 % (36-46); Hemoglobin 11.6 g/dL (12.0-16.0); Lymphocytes Absolute Auto 2700 /uL (1100-4500); Lymphocytes Percent Auto 37.3 % (25-40); Mean Corpuscular HGB Conc 34.1 % (30-36); Mean Corpuscular Hemoglobin 30.3 PG (26-34); Mean Corpuscular Volume 89.1 fL (80-100); Monocytes Absolute Auto 500 /uL (0-900); Monocytes Percent Auto 6.7 % (3-14); Neutrophils Absolute Auto 3700 /uL (1500-7000); Neutrophils Percent Auto 51.3 % (50-75); Platelet Count 316 X10^3/uL (150-400); Red Blood Cell Count 3.84 X10^6/uL (4.0-5.2); Red Cell Distribution Width 13.7 % (11.6-14.8); White Blood Cell Count 7.2 X10^3/uL (4.5-11.0)
[2019-11-01 15:43] LABS: Alanine Aminotransferase 17 IU/L (<35); Albumin 4.4 g/dL (3.5-5.0); Albumin Globulin Ratio 1.2 (1.0-2.8); Alkaline Phosphatase 109 U/L (38-126); Aspartate Aminotransferase 29 IU/L (14-36); Bilirubin Total 0.3 mg/dL (0.2-1.3); Blood Urea Nitrogen 10 mg/dL (7-17); Calcium 9.9 mg/dL (8.4-10.2); Carbon Dioxide 29 mmol/L (22-32); Chloride 102 mmol/L (98-107); Estimated Glomerular Filt Rate > 60.0 mL/min (>60); Globulin 3.8 g/dL (1.7-4.1); Glucose 108 mg/dL (70-100); HEMOLYSIS < 15 (0-50); Potassium 4.1 mmol/L (3.4-5.1); Sodium 138 mmol/L (137-145); Total Protein 8.2 g/dL (6.3-8.2)
[2019-11-01 16:02] LABS: Procalcitonin < 0.05 ng/mL (<0.5)
[2019-11-01 16:11] VITALS: BP 140/78; PULSE 80; RESP 12; TEMP 37.1; O2SAT 99
[2019-11-01 22:15] LABS: Bacteria Urine Moderate (10-30); RBC Urine 0-1/HPF (0-5/HPF); Squamous Epithelial Cell Urine 1-5 /HPF (0-5/HPF); WBC Urine 1-5/HPF (0-5/HPF)
== END 2019-11-01 16:22 | disposition home or self-care (01) ==
PROVIDERS: Emergency Provider Nurse Practitioner Family; Family Provider Family Medicine; PCP Family Medicine
DX: J18.9 Pneumonia, unspecified organism (principal); J02.9 Acute pharyngitis, unspecified
CPT/HCPCS: 36415; 70360; 71046; 80053; 80305; 81003; 81015; 81025; 84145; 85025; 87070; 87086; 87880; 99284

== ENCOUNTER → 2019-11-23 12:03 | Outpatient (CLI) | payer BC, SELFPAY ==
--- NOTE | 2019-11-23 | DI.RAD.S_ITS ---
PROCEDURE: XR CHEST 2V INDICATIONS: Pneumonia TECHNIQUE: 2 views of the chest were acquired. COMPARISON: [facility], CR, CHEST 2 VIEW, 09/25/2017, 10:06. [facility], CT, THORAX WITHOUT CONTRAST, 11/11/2015, 12:01. [facility], CR, XR CHEST 2V, 11/01/2019, 12:54. FINDINGS: Surgical changes and devices: Sternotomy wires and cardiac valve surgery can be seen. Lungs and pleura: The previously seen interstitial prominence has significantly improved, with a small amount of interstitial prominence remaining. No focal infiltrates are seen. No pneumothorax or pleural effusions are seen. The previously seen pulmonary nodule is not definitely seen by plain film. Mediastinum: The cardiac contours are moderately enlarged. The aorta demonstrates calcification and tortuosity. Bones and chest wall: No suspicious bony abnormalities. Age-appropriate bony degenerative changes are seen. Accentuated thoracic kyphosis is seen. Soft tissues appear unremarkable. IMPRESSION: No focal infiltrates are seen. Interval improvement in the previously seen interstitial prominence. Postoperative and degenerative changes are seen. Dictated by: August Carolina M.D. on 11/23/2019 at 11:50 Approved by: August Carolina M.D. on 11/23/2019 at 11:52
== END ==
PROVIDERS: Family Provider Family Medicine; PCP Family Medicine; Referring Provider Family Medicine; Visit Provider Family Medicine
DX: J18.9 Pneumonia, unspecified organism (principal); M40.204 Unspecified kyphosis, thoracic region
CPT/HCPCS: 71046

== ENCOUNTER → 2020-04-01 08:25 | Outpatient (CLI) | payer BC, SELFPAY ==
--- NOTE | 2020-04-01 | DI.MG.S_ITS ---
BILATERAL DIGITAL SCREENING MAMMOGRAM 3D/2D WITH CAD: 04/01/2020 CLINICAL: Routine screening. Family history of breast cancer. Comparison is made to exams dated: 03/31/2019 mammogram, 03/21/2018 mammogram, and 12/18/2016 mammogram - [facility]. The tissue of both breasts is heterogeneously dense. This may lower the sensitivity of mammography. Current study was also evaluated with a Computer Aided Detection (CAD) system. No significant masses, calcifications, or other findings are seen in either breast. There has been no significant interval change. IMPRESSION: NEGATIVE There is no mammographic evidence of malignancy. A 1 year screening mammogram is recommended. This exam was interpreted at Station ID: [id number]. NOTE: For mammograms, a report in lay terms will be sent to the patient. Approximately 15% of breast malignancies will not be visualized mammographically. In the management of a palpable breast mass, a negative mammogram must not discourage biopsy of a clinically suspicious lesion. Electronically Signed By: Jr Walter M.D., jr/andi:04/01/2020 09:04:49 letter sent: Normal Exam ACR BI-RADS Category 1: Negative [id number]
== END ==
PROVIDERS: Family Provider Family Medicine; PCP Family Medicine; Referring Provider Family Medicine; Visit Provider Family Medicine
DX: Z12.31 Encounter for screening mammogram for malignant neoplasm of breast (principal); Z80.3 Family history of malignant neoplasm of breast
CPT/HCPCS: 77063; 77067

== ENCOUNTER → 2021-05-10 15:17 | Outpatient (CLI) | payer BC, SELFPAY ==
--- NOTE | 2021-05-10 15:18 | DI.MG.S_ITS ---
BILATERAL DIGITAL SCREENING MAMMOGRAM 3D/2D WITH CAD: 05/10/2021 CLINICAL: Routine screening. Family history of breast cancer. Comparison is made to exams dated: 04/01/2020 mammogram, 03/31/2019 mammogram, and 03/21/2018 mammogram - [facility]. The tissue of both breasts is heterogeneously dense. This may lower the sensitivity of mammography. Current study was also evaluated with a Computer Aided Detection (CAD) system. No significant masses, calcifications, or other findings are seen in either breast. There has been no significant interval change. IMPRESSION: NEGATIVE There is no mammographic evidence of malignancy. A 1 year screening mammogram is recommended. This exam was interpreted at Station ID: [id number]. NOTE: For mammograms, a report in lay terms will be sent to the patient. Approximately 15% of breast malignancies will not be visualized mammographically. In the management of a palpable breast mass, a negative mammogram must not discourage biopsy of a clinically suspicious lesion. Electronically Signed By: Tony Randall acr/andi:05/10/2021 18:47:16 letter sent: Normal Exam ACR BI-RADS Category 1: Negative 3341F
== END ==
PROVIDERS: Family Provider Family Medicine; PCP Family Medicine; Referring Provider Family Medicine; Visit Provider Family Medicine
DX: Z12.31 Encounter for screening mammogram for malignant neoplasm of breast (principal); Z80.3 Family history of malignant neoplasm of breast
CPT/HCPCS: 77063; 77067

== ENCOUNTER → 2022-05-31 16:35 | Outpatient (CLI) | payer BC, SELFPAY ==
--- NOTE | 2022-05-31 16:35 | DI.MG.S_ITS ---
BILATERAL DIGITAL SCREENING MAMMOGRAM 3D/2D WITH CAD: 05/31/2022 CLINICAL: Routine screening. Family history of breast cancer. Comparison is made to exams dated: 05/10/2021 mammogram, 04/01/2020 mammogram, and 03/31/2019 mammogram - . There are scattered areas of fibroglandular density in both breasts (category b / 25%-50% glandular tissue). Current study was also evaluated with a Computer Aided Detection (CAD) system. No significant masses, calcifications, or other findings are seen in either breast. There has been no significant interval change. IMPRESSION: NEGATIVE There is no mammographic evidence of malignancy. A 1 year screening mammogram is recommended. Based on the Tyrer Cuzick model (a risk assessment model) the patient's lifetime risk is 7.5% and her 10 year risk is 1.5%. According to the ACR, ACS, and NCCN guidelines, an annual breast MRI exam along with mammogram is recommended if the patient's lifetime risk is 20% or greater. This exam was interpreted at Station ID: [id number]. NOTE: For mammograms, a report in lay terms will be sent to the patient. Approximately 15% of breast malignancies will not be visualized mammographically. In the management of a palpable breast mass, a negative mammogram must not discourage biopsy of a clinically suspicious lesion. Electronically Signed By: Graham montemayor/andi:06/01/2022 09:51:31 letter sent: Normal Exam ACR BI-RADS Category 1: Negative 3341F
== END ==
PROVIDERS: Family Provider Family Medicine; PCP Family Medicine; Referring Provider Family Medicine; Visit Provider Family Medicine
DX: Z12.31 Encounter for screening mammogram for malignant neoplasm of breast (principal); Z80.3 Family history of malignant neoplasm of breast
CPT/HCPCS: 77063; 77067

== ENCOUNTER → 2022-07-07 09:21 | Outpatient (CLI) | payer BC, SELFPAY ==
--- NOTE | 2022-07-07 09:25 | DI.CT.S_ITS ---
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 Coronal and sagittal reformats were performed. For radiation dose reduction, the following was used: automated exposure control, adjustment of mA and/or kV according to patient size. COMPARISON: [facility], CT, THORAX WITHOUT CONTRAST, 11/11/2015, 12:01. FINDINGS: Image quality: Excellent. CHEST: Lower Neck: No enlarged lymph nodes. Thyroid: Within normal limits. Axillae: No enlarged lymph nodes. Chest Wall: Sternotomy wires are seen. Lungs and Airways: Within the left lower lobe, there is again seen a mildly lobulated mass, as on series 5, image 164 that measures 3.3 x 2 cm in greatest axial dimension, which is not significantly changed compared to 2016. No definite additional pulmonary nodules are seen. No focal infiltrates are seen. Pleura: No pneumothorax or pleural effusions. Heart: Heart size is at the upper limits of normal. No pericardial effusion. Aortic and pulmonary valve prostheses can be seen. Thoracic Vessels: The aorta and pulmonary arteries demonstrate normal size. Mediastinum and Clara: No enlarged lymph nodes. Esophagus: No wall thickening. No hiatal hernia. ABDOMEN: Liver: Unremarkable. Gallbladder: Unremarkable. Biliary ducts: Unremarkable. Pancreas: Unremarkable. Spleen: Unremarkable. Adrenal Glands: Unremarkable. Kidneys and Ureters: Unremarkable. 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 The colon is otherwise unremarkable. No dilated loops of small bowel are seen. The stomach is relatively decompressed Peritoneum: No abnormal intraperitoneal fluid. No free air. Ventral Wall: No hernia. Abdominal Nodes: No retroperitoneal or mesenteric adenopathy by size criteria. Vessels: Aorta and inferior vena cava are normal in size. PELVIS: Pelvic Organs: The uterus appears normal for age. No adnexal masses are seen. The Bladder: Unremarkable. Pelvic Nodes: Borderline prominent inguinal lymph nodes are seen. No enlarged pelvic/iliac lymph nodes are seen. Miscellaneous: No inguinal hernias are seen. Bones: Accentuated thoracic kyphosis is seen. Focal L5-S1 degenerative change is seen. Milder degenerative changes are seen elsewhere. IMPRESSION: Within the left lower lobe, there is a lobulated mass seen, which is not significantly changed compared to 2016 and thus regarded to be benign. No additional pulmonary nodules are seen. 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 Borderline prominent inguinal lymph nodes are seen. No enlarged pelvic, inguinal, or retroperitoneal lymph nodes are seen. No liver masses are seen. Incidental note is made of: Sternotomy wires with aortic and pulmonary valve prostheses. Focal L5-S1 degenerative change Dictated by: August Carolina M.D. on 07/07/2022 at 17:46 Approved by: August Carolina M.D. on 07/07/2022 at 17:52
== END ==
PROVIDERS: Family Provider Family Medicine; PCP Family Medicine; Referring Provider Internal Medicine Gastroenterology; Visit Provider Internal Medicine Gastroenterology
DX: C19 Malignant neoplasm of rectosigmoid junction (principal); R91.8 Other nonspecific abnormal finding of lung field; M47.817 Spondylosis without myelopathy or radiculopathy, lumbosacral region
CPT/HCPCS: 71260; 74177; Q9967

== ENCOUNTER → 2023-05-02 12:27 | Outpatient (CLI) | payer BC, SELFPAY ==
--- NOTE | 2023-05-02 | DI.RAD.S_ITS ---
PROCEDURE: XR CHEST 2V INDICATIONS: Bronchitis, not specified as acute or chronic TECHNIQUE: 2 views of the chest were acquired. COMPARISON: [facility], CR, XR CHEST 2V, 11/23/2019, 11:08. FINDINGS: Surgical changes and devices: Stable median sternotomy wires and cardiac valve prosthesis. Lungs and pleura: Lungs are clear. No pleural effusions or pneumothorax. Mediastinum: Mediastinal contours are normal. Heart is enlarged. Bones and chest wall: No suspicious bony abnormalities. Soft tissues appear unremarkable. IMPRESSION: No acute cardiopulmonary abnormality is seen. Dictated by: Nilsa Landa MD, PhD on 05/02/2023 at 13:25 Approved by: Nilsa Landa MD, PhD on 05/02/2023 at 13:26
== END ==
PROVIDERS: Family Provider Family Medicine; PCP Family Medicine; Referring Provider Registered Nurse; Visit Provider Registered Nurse
DX: J40 Bronchitis, not specified as acute or chronic (principal)
CPT/HCPCS: 71046

== ENCOUNTER → 2023-06-03 14:46 | Outpatient (CLI) | payer BC, SELFPAY ==
--- NOTE | 2023-06-03 | DI.MG.S_ITS ---
BILATERAL DIGITAL SCREENING MAMMOGRAM 3D/2D WITH CAD: 06/03/2023 CLINICAL: Routine screening. Family history of breast cancer. Comparison is made to exams dated: 05/31/2022 mammogram, 05/10/2021 mammogram, 04/01/2020 mammogram, 03/31/2019 mammogram, 03/21/2018 mammogram, and 12/18/2016 mammogram - [facility]. There are scattered areas of fibroglandular density in both breasts (category b / 25%-50% glandular tissue). Current study was also evaluated with a Computer Aided Detection (CAD) system. No significant masses, calcifications, or other findings are seen in either breast. There has been no significant interval change. IMPRESSION: NEGATIVE There is no mammographic evidence of malignancy. A 1 year screening mammogram is recommended. Based on the Tyrer Cuzick model (a risk assessment model) the patient's lifetime risk is 7.5% and her 10 year risk is 1.6%. According to the ACR, ACS, and NCCN guidelines, an annual breast MRI exam along with mammogram is recommended if the patient's lifetime risk is 20% or greater. This exam was interpreted at Station ID: [id number]. NOTE: For mammograms, a report in lay terms will be sent to the patient. Approximately 15% of breast malignancies will not be visualized mammographically. In the management of a palpable breast mass, a negative mammogram must not discourage biopsy of a clinically suspicious lesion. Electronically Signed By: Suleiman lundy/andi:06/04/2023 08:38:52 letter sent: Normal Exam ACR BI-RADS Category 1: Negative 3341F
--- NOTE | 2023-06-03 | DI.CT.S_ITS ---
PROCEDURE: CT CHEST W CON INDICATIONS: Shortness of breath TECHNIQUE: After the administration of intravenous contrast, 5 mm thick sections acquired from the pulmonary apices to the posterior costophrenic angles. 1 mm axial lung, 5 mm thick coronal and sagittal reformats and 7 mm axial MIP were acquired. For radiation dose reduction, the following was used: automated exposure control, adjustment of mA and/or kV according to patient size. COMPARISON: [facility], CT, THORAX WITH CONTRAST, 10/10/2011, 10:47. [facility], CT, CT CHEST ABD PEL W CON, 07/07/2022, 11:03. FINDINGS: Image quality: Excellent. Lungs and pleura: No acute air space opacities. No pleural effusions or pneumothorax. Central and peripheral airways are patent and normal in caliber. No significant change in size of the left lower lobe nodule compared with 2011, most consistent with a benign etiology. Mild bronchial thickening. Mediastinum: Heart size is normal. No pericardial effusion. No mediastinal or hilar adenopathy by size criteria. Thoracic aorta and central pulmonary arteries are normal in size. Esophagus is normal in caliber. No hiatal hernia. Aortic and pulmonary prosthetic valves. Bones and chest wall: No suspicious bony lesions. No vertebral body compression fractures. No axillary or supraclavicular adenopathy by size criteria. Thyroid gland is unremarkable . Sternotomy. Abdomen: Visualized upper abdominal solid organs appear normal. Upper abdominal bowel loops are normal in caliber. IMPRESSION: Bronchial thickening, which may indicate infectious or inflammatory bronchitis. Stable left lower lobe solid nodule, most consistent with a benign lesion such as hamartoma. Dictated by: Mehdi Wagner M.D. on 06/03/2023 at 15:48 Approved by: Mehdi Wagner M.D. on 06/03/2023 at 15:51
== END ==
PROVIDERS: Family Provider Family Medicine; PCP Family Medicine; Referring Provider Family Medicine; Visit Provider Family Medicine
DX: R05.1 Acute cough (principal); R06.02 Shortness of breath; Z12.31 Encounter for screening mammogram for malignant neoplasm of breast; Z80.3 Family history of malignant neoplasm of breast; R91.1 Solitary pulmonary nodule
CPT/HCPCS: 71260; 77063; 77067; Q9967

== ENCOUNTER → 2023-09-16 16:17 | Outpatient (CLI) | payer BC, SELFPAY | LOC: RESP 16:17 | PROVIDERS: Family Provider Family Medicine; PCP Family Medicine; Referring Provider Family Medicine; Visit Provider Family Medicine | DX: J45.20 Mild intermittent asthma, uncomplicated (principal); R06.02 Shortness of breath; Z87.891 Personal history of nicotine dependence | CPT/HCPCS: 94060; 94726; 94729 ==

== ENCOUNTER → 2024-06-17 13:01 | Outpatient (CLI) | payer BC, SELFPAY ==
--- NOTE | 2024-06-17 | DI.MG.S_ITS ---
BILATERAL DIGITAL SCREENING MAMMOGRAM 3D/2D WITH CAD: 06/17/2024 CLINICAL: Routine screening. Family history of breast cancer. Comparison is made to exams dated: 06/03/2023 mammogram, 05/31/2022 mammogram, 05/10/2021 mammogram, 04/01/2020 mammogram, and 03/31/2019 mammogram - [facility]. There are scattered areas of fibroglandular density (category b / 25%-50% glandular tissue). Current study was also evaluated with a Computer Aided Detection (CAD) system. No significant masses, calcifications, or other findings are seen in either breast. There has been no significant interval change. IMPRESSION: NEGATIVE There is no mammographic evidence of malignancy. A 1 year screening mammogram is recommended. Based on the Tyrer Cuzick model (a risk assessment model) the patient's lifetime risk is 7.6% and her 10 year risk is 1.7%. According to the ACR, ACS, and NCCN guidelines, an annual breast MRI exam along with mammogram is recommended if the patient's lifetime risk is 20% or greater. This exam was interpreted at Station ID: [id number]. NOTE: For mammograms, a report in lay terms will be sent to the patient. Approximately 15% of breast malignancies will not be visualized mammographically. In the management of a palpable breast mass, a negative mammogram must not discourage biopsy of a clinically suspicious lesion. Electronically Signed By: Heidy Monet M.D., Ph.D. enzo/andi:06/18/2024 16:59:41 letter sent: Normal Exam ACR BI-RADS Category 1: Negative
== END ==
PROVIDERS: Family Provider Family Medicine; PCP Family Medicine; Referring Provider Family Medicine; Visit Provider Family Medicine
DX: Z12.31 Encounter for screening mammogram for malignant neoplasm of breast (principal); Z80.3 Family history of malignant neoplasm of breast
CPT/HCPCS: 77063; 77067

== ENCOUNTER → 2024-07-08 13:26 | Outpatient (CLI) | payer BC, SELFPAY | LOC: RESP 13:26 | PROVIDERS: Family Provider Family Medicine; PCP Family Medicine; Referring Provider Family Medicine; Visit Provider Family Medicine | DX: J45.20 Mild intermittent asthma, uncomplicated (principal); Z87.891 Personal history of nicotine dependence; R94.2 Abnormal results of pulmonary function studies; J98.8 Other specified respiratory disorders | CPT/HCPCS: 94060; 94726; 94729 ==

== ENCOUNTER → 2024-10-21 12:32 | Outpatient (CLI) | payer BC, SELFPAY ==
--- NOTE | 2024-10-21 | DI.RAD.S_ITS ---
PROCEDURE: XR CHEST 2V INDICATIONS: cough TECHNIQUE: 2 views of the chest were acquired. COMPARISON: [facility], CR, XR CHEST 2V, 05/02/2023, 12:34. [facility], CR, XR CHEST 2V, 11/23/2019, 11:08. FINDINGS: Surgical changes and devices: Prosthetic valves and sternotomy Lungs and pleura: Lungs are clear. No pleural effusions or pneumothorax. Peribronchial cuffing. Mediastinum: Mediastinal contours are normal. Heart size is large. Bones and chest wall: No suspicious bony abnormalities. Soft tissues appear unremarkable. IMPRESSION: Peribronchial cuffing, typically indicating infectious or inflammatory bronchitis. Dictated by: Mehdi Wagner M.D. on 10/21/2024 at 16:45 Approved by: Mehdi Wagner M.D. on 10/21/2024 at 16:46
== END ==
PROVIDERS: Family Provider Family Medicine; PCP Family Medicine; Referring Provider Family Medicine; Visit Provider Family Medicine
DX: J45.20 Mild intermittent asthma, uncomplicated (principal); R05.3 Chronic cough
CPT/HCPCS: 71046

== ENCOUNTER → 2025-01-25 08:35 | Outpatient (CLI) | payer BC, SELFPAY ==
--- NOTE | 2025-01-25 08:35 | DI.CT.S_ITS ---
PROCEDURE: CT SINUS SCREEN WO CON INDICATIONS: Mild intermitten asthma wo complications TECHNIQUE: Noncontrast 3.0 mm axial images acquired from the frontal sinuses to the mid-sella, with coronal and sagittal reformats. For radiation dose reduction, the following was used: automated exposure control, adjustment of mA and/or kV according to patient size. COMPARISON: None. FINDINGS: Image quality: Excellent. Maxillary Sinuses: No bony remodeling or destruction. Mild circumferential mucosal thickening. Ethmoid Air Cells: No bony remodeling or destruction. Mild circumferential mucosal thickening. Sphenoid Sinuses: No bony remodeling or destruction. Sinuses are clear. Frontal Sinuses: No bony remodeling or destruction. Mild mucosal thickening, right greater than left. Ostiomeatal Complexes: Ostiomeatal complexes are patent. No Anusha cells. Miscellaneous: Visualized intra-orbital contents are normal. No henri bullosa or paradoxical turbinate curvature. Slight leftward deviation of the vomer. IMPRESSION: Mild mucosal thickening of the sinuses, without bone remodeling to suggest a chronic process. Dictated by: Mehdi Wagner M.D. on 01/25/2025 at 10:17 Approved by: Mehdi Wagner M.D. on 01/25/2025 at 10:20
== END ==
PROVIDERS: Family Provider Family Medicine; PCP Family Medicine; Referring Provider Family Medicine; Visit Provider Family Medicine
DX: R05.3 Chronic cough (principal)
CPT/HCPCS: 70486

== ENCOUNTER → 2025-07-09 09:51 | Outpatient (CLI) | payer BC, SELFPAY ==
--- NOTE | 2025-07-09 09:53 | DI.MG.S_ITS ---
MM screening mammo BI: 07/09/2025. BI-RADS: 1 CLINICAL: 49-year old female for bilateral screening mammogram. Tyrer-Cuzick lifetime risk of 11.6%. No personal or first-degree family history of breast cancer. Current reported family history of breast cancer: maternal aunt. PRIOR EXAMS 06/17/2024, 06/03/2023, 05/31/2022, 05/10/2021. MAMMOGRAPHY TECHNIQUE: 2D and 3D (tomosynthesis) digital mammographic views obtained, with additional images as needed for full coverage. Current study was also evaluated with a Computer Aided Detection (CAD) system. DENSITY B. There are scattered areas of fibroglandular density. MAMMOGRAPHY FINDINGS Bilateral: No suspicious mass, asymmetry, microcalcification, or other abnormality seen. IMPRESSION: * No evidence of malignancy. RECOMMENDATIONS Bilateral * Annual screening mammography. OVERALL ASSESSMENT CATEGORY BI-RADS-1: Negative. The [employer] recommends annual screening mammography beginning at age 40 for women with average risk of breast cancer. ELECTRONICALLY SIGNED: Bushra Gayle M.D. on 07/11/2025 at 11:28:37 PM PT Interpreting Station ID: [id number]
== END ==
LOC: MAMMO 09:52
PROVIDERS: Family Provider Family Medicine; PCP Family Medicine; Referring Provider Family Medicine; Visit Provider Family Medicine
DX: Z12.31 Encounter for screening mammogram for malignant neoplasm of breast (principal); Z80.3 Family history of malignant neoplasm of breast
CPT/HCPCS: 77063; 77067